=== PATIENT | male | born 1955 ===

== ENCOUNTER 2017-04-24 10:42 | Outpatient (CLI) | payer OTHER ==
--- NOTE | 2017-04-24 17:37 | Diagnostic Imaging Report ---
Indication: Abdominal pain Technique: Fountain-scale and duplex images of the upper abdomen were obtained Comparison: 04/27/2015 Findings: Gallbladder demonstrates gallstones. No wall thickening or pericholecystic fluid Sonographic Mosley's sign is negative. Common bile duct measures 5 mm in diameter. No intrahepatic biliary ductal dilatation. Liver demonstrates diffusely increased echogenicity, consistent with diffuse hepatocellular disease, most likely fatty change. No surface nodularity noted Portal vein and hepatic veins are patent. Pancreas is unremarkable. Spleen is unremarkable. Left kidney measures 12.2 cm in length. Right kidney measures 10.7 cm length. Both kidneys demonstrate normal echogenicity. There is no hydronephrosis. No focal abnormality . Non-aneurysmal abdominal aorta . Impression: Cholelithiasis. Negative for dilated ducts Liver demonstrates diffusely increased echogenicity, consistent with diffuse hepatocellular disease, most likely fatty change, not definitely evident on previous exam.
== END 2017-04-24 12:42 | disposition home or self-care (01) ==
LOC: ULS 10:42
DX: K80.20 Calculus of gallbladder without cholecystitis without obstruction (principal); B19.20 Unspecified viral hepatitis C without hepatic coma
CPT/HCPCS: 76700

== ENCOUNTER 2018-04-23 11:45 | Outpatient (CLI) | payer OTHER ==
--- NOTE | 2018-04-23 16:52 | Diagnostic Imaging Report ---
Indication: Abdominal pain Technique: Fountain-scale and duplex images of the upper abdomen were obtained. Doppler interrogation of the pancreatic and hepatic vessels Comparison: 04/24/2017 Findings: Gallbladder is nondistended, poorly visualized. Echogenic shadowing is seen in the gallbladder fossa, probably represents gallstones in patient with known history of such Sonographic Mosley's sign is negative. Common bile duct measures for mm in diameter. No intrahepatic biliary ductal dilatation. Liver demonstrates slightly increased echogenicity, also previously reported, most likely fatty change. No surface micronodularity. No focal hepatic abnormality Portal vein and hepatic veins are patent. Pancreas is unremarkable. Spleen is unremarkable. Left kidney measures 11.9 cm in length. Right kidney measures 11.8 cm length. Both kidneys demonstrate normal echogenicity. There is no hydronephrosis. No focal abnormality . Non-aneurysmal abdominal aorta . No significant interim change Impression: Liver demonstrates diffusely increased echogenicity, consistent with diffuse hepatocellular disease, most likely fatty change. Cholelithiasis, also previously reported. No evidence of ductal dilatation
== END 2018-04-23 13:45 | disposition home or self-care (01) ==
LOC: ULS 11:45
DX: R10.9 Unspecified abdominal pain (principal)
CPT/HCPCS: 76700

== ENCOUNTER → 2019-04-23 | Outpatient (CLI) | payer OTHER ==
--- NOTE | 2019-04-23 13:55 | Diagnostic Imaging Report ---
Indication: Abdominal pain, history of hepatitis C Technique: Fountain-scale and duplex images of the upper abdomen were obtained Comparison: Findings: Gallbladder demonstrates a large gallstone. Sonographic Mosley's sign is negative. Common bile duct measures 5 mm in diameter. No intrahepatic biliary ductal dilatation. Liver demonstrates normal echogenicity, no focal abnormality. No hepatic surface nodularity Portal vein and hepatic veins are patent. Pancreas is unremarkable. Spleen is unremarkable. Left kidney measures 12.3 cm in length. Right kidney measures 11.2 cm length. Both kidneys demonstrate normal echogenicity. There is no hydronephrosis. No focal abnormality . Non-aneurysmal abdominal aorta . No free intraperitoneal fluid Impression: Cholelithiasis. Negative for dilated bile ducts Negative for hepatic abnormality or ascites or other significant finding
== END | disposition home or self-care (01) ==
LOC: ULS 10:24
DX: R10.9 Unspecified abdominal pain (principal); Z86.19 Personal history of other infectious and parasitic diseases; K80.20 Calculus of gallbladder without cholecystitis without obstruction
CPT/HCPCS: 76700